=== PATIENT | male | born 1960 | race Caucasian/White ===

== ENCOUNTER 2018-11-09 14:21 | Inpatient (IN) ==
--- NOTE | 2018-11-09 15:15 | Emergency Department Note ---
Disposition Clinical Impression: Acute exacerbation of chronic obstructive airways disease, Hyperglycemia, Hyponatremia Community acquired pneumonia Qualifiers: Laterality: right Lung location: lower lobe of lung Qualified Code(s): J18.1 - Lobar pneumonia, unspecified organism Sepsis Qualifiers: Sepsis type: sepsis due to unspecified organism Qualified Code(s): A41.9 - Sepsis, unspecified organism Pancreatitis Qualifiers: Chronicity: acute Pancreatitis type: unspecified pancreatitis type Acute pancreatitis complication: unspecified Qualified Code(s): K85.90 - Acute pancreatitis without necrosis or infection, unspecified Disposition: Admitted As Inpatient Condition: Undetermined Time of Disposition: 22:29 General Adult HPI - General Chief complaint: ED Shortness of Breath/Dyspnea Stated complaint: cough, congestion Time Seen by Provider: 11/09/18 15:10 Source: patient Limitations: no limitations - History of Present Illness Pain Scale: 9 - Related Data Home Medications Medication Instructions Recorded Confirmed Allopurinol [Zyloprim 100 MG] 100 mg PO DAILY 06/25/17 09/05/18 Alprazolam [Xanax] 2 mg PO TID PRN 06/25/17 09/05/18 Citalopram Hydrobromide 40 mg PO DAILY 06/25/17 09/05/18 [Citalopram HBr] Doxazosin [Cardura] 4 mg PO HS 06/25/17 09/05/18 Enalapril Maleate [Vasotec] 10 mg PO DAILY 06/25/17 09/05/18 Furosemide [Lasix] 80 mg PO TID 06/25/17 09/05/18 Gabapentin [Neurontin] 800 mg PO TID 06/25/17 09/05/18 Indomethacin [Indocin] 25 mg PO TID 06/25/17 09/05/18 Levothyroxine Sodium 200 mcg PO DAILY 06/25/17 09/05/18 Metformin HCl [Glucophage] 1,000 mg PO BID 06/25/17 09/05/18 Omeprazole [PriLOSEC] 20 mg PO BID 06/25/17 09/05/18 OxyCODONE Immed Rel [Oxycodone HCl] 10 mg PO QID PRN 06/25/17 09/05/18 Pravastatin Sodium [Pravachol] 40 mg PO HS 06/25/17 09/05/18 Spironolactone [Aldactone] 100 mg PO DAILY 06/25/17 09/05/18 Tamsulosin [Flomax] 0.4 mg PO DAILY 06/25/17 09/05/18 Albuterol Sulfate [Albuterol 2 puff IH Q4HR PRN 11/05/17 09/05/18 Inhaler] Previous Rx's Medication Instructions Recorded Albuterol Sulfate [Albuterol 2 puff IH Q6HR #1 [id number].[email or web address] 09/05/18 Inhaler] Ondansetron [Zofran ODT] 8 mg SL Q8H PRN #10 tab 09/05/18 predniSONE [Prednisone] 50 mg PO DAILY #5 tablet 09/05/18 Allergies Allergy/AdvReac Type Severity Reaction Status Date / Time benazepril Allergy Difficulty Verified 09/05/18 16:09 Breathing ibuprofen Allergy Difficulty Verified 09/05/18 16:09 Breathing lisinopril Allergy Difficulty Verified 09/05/18 16:09 Breathing canagliflozin [From Invokana] AdvReac Dizziness Verified 09/05/18 16:09 Past Medical History - Past Medical History Medical history: Reports: COPD, diabetes Surgical history: Reports: cholecystectomy Psychiatric history: Reports: no psych history - Social History Smoking Status: Current every day smoker Smokeless Tobacco Status: No Alcohol use: Reports: none Drug use: Reports: none Physical Exam - General Limitations: no limitations General appearance: alert, in no apparent distress Course Vital Signs Temperature 98.6 F 11/09/18 14:29 Pulse Rate 86 11/09/18 14:29 Respiratory Rate 20 11/09/18 14:29 Blood Pressure 89/51 11/09/18 14:29 O2 Sat by Pulse Oximetry 87 11/09/18 14:29 Temperature 98.6 F 11/09/18 14:29 Pulse Rate 87 11/09/18 21:42 Respiratory Rate 16 11/09/18 22:20 Blood Pressure 108/45 11/09/18 22:20 O2 Sat by Pulse Oximetry 95 11/09/18 21:42 Oxygen Delivery Oxygen Delivery Room Air Medical Decision Making - Lab Data Result diagrams: 11/09/18 15:20 11/09/18 21:42 Lab Results 11/09/18 11/09/18 11/09/18 Range/Units 15:20 15:20 15:20 WBC 20.6 H (4.3-11.1) K/mcL RBC 4.90 (4.19-5.50) M/mcL Hgb 14.7 (12.9-16.9) g/dL Hct 41.7 (37.5-50.1) % MCV 85.1 (83.0-100.0) fL MCH 30.0 (28.0-33.3) pg MCHC 35.3 (31.6-35.5) g/dL RDW 15.1 H (11.5-14.5) % Plt Count 211 (140-400) K/mcL MPV 9.4 (9.4-12.4) fL Immature Gran % 2.5 (0-4) % Seg Neutrophils % 86.6 % Lymphocytes % 5.0 % Monocytes % 5.7 % Eosinophils % 0.0 % Basophils % 0.2 % Neutrophils # 17.8 H (1.6-8.9) K/mcL Lymphocytes # 1.0 (0.6-4.6) K/mcL Monocytes # 1.2 (0.0-1.3) K/mcL Eosinophils # 0.0 (0.0-0.6) K/mcL Basophils # 0.1 (0.0-0.2) K/mcL Sample Site ABG pH (7.32-7.45) pH Units ABG pCO2 (35-45) mmHg ABG pO2 (85-104) mmHg ABG HCO3 (21-27) mEq/L ABG Total CO2 (20-26) mEq/L ABG O2 Saturation (95-98) % ABG Base Excess (-2 to 3) mEq/L Akbar Test VBG pH (7.32-7.42) pH Units VBG pCO2 (41-51) mmHg VBG pO2 (25-50) mmHg VBG HCO3 (21-27) mEq/L O2 Delivery Device Sodium 115 L* (136-145) mEq/L Potassium 4.4 (3.5-5.1) mEq/L Chloride 67 L (98-107) mEq/L Carbon Dioxide 30 H (23-29) mEq/L BUN 75 H (6-20) mg/dL Creatinine 3.79 H (0.70-1.30) mg/dL Est GFR ( Amer) 20 L (> 60) Est GFR (Non-Af Amer) 17 L (> 60) BUN/Creatinine Ratio 20 (6-26) Glucose 568 H* (70-105) mg/dL POC Glucose (70-99) mg/dL Calculated Osmolality 288 (280-300) Lactic Acid (0.5-2.2) mmol/L Calcium 9.2 (8.6-10.3) mg/dL Troponin I 0.03 (< 0.04) ng/mL B-Natriuretic Peptide 54 (Less than 100) pg/mL Lipase 81 (11-82) Units/L Beta-Hydroxybutyric Acd (0.02-0.27) mmol/L Urine Creatinine mg/dL Protein/Creatinin Ratio (0.00-0.20) mg/mg Urine Sodium mEq/L Urine Total Protein (1-14) mg/dL 11/09/18 11/09/18 11/09/18 Range/Units 15:20 16:21 16:30 WBC (4.3-11.1) K/mcL RBC (4.19-5.50) M/mcL Hgb (12.9-16.9) g/dL Hct (37.5-50.1) % MCV (83.0-100.0) fL MCH (28.0-33.3) pg MCHC (31.6-35.5) g/dL RDW (11.5-14.5) % Plt Count (140-400) K/mcL MPV (9.4-12.4) fL Immature Gran % (0-4) % Seg Neutrophils % % Lymphocytes % % Monocytes % % Eosinophils % % Basophils % % Neutrophils # (1.6-8.9) K/mcL Lymphocytes # (0.6-4.6) K/mcL Monocytes # (0.0-1.3) K/mcL Eosinophils # (0.0-0.6) K/mcL Basophils # (0.0-0.2) K/mcL Sample Site ABG pH (7.32-7.45) pH Units ABG pCO2 (35-45) mmHg ABG pO2 (85-104) mmHg ABG HCO3 (21-27) mEq/L ABG Total CO2 (20-26) mEq/L ABG O2 Saturation (95-98) % ABG Base Excess (-2 to 3) mEq/L Akbar Test VBG pH 7.37 (7.32-7.42) pH Units VBG pCO2 53 H (41-51) mmHg VBG pO2 74 H (25-50) mmHg VBG HCO3 31 H (21-27) mEq/L O2 Delivery Device Sodium (136-145) mEq/L Potassium (3.5-5.1) mEq/L Chloride (98-107) mEq/L Carbon Dioxide (23-29) mEq/L BUN (6-20) mg/dL Creatinine (0.70-1.30) mg/dL Est GFR ( Amer) (> 60) Est GFR (Non-Af Amer) (> 60) BUN/Creatinine Ratio (6-26) Glucose (70-105) mg/dL POC Glucose (70-99) mg/dL Calculated Osmolality (280-300) Lactic Acid 3.4 H (0.5-2.2) mmol/L Calcium (8.6-10.3) mg/dL Troponin I (< 0.04) ng/mL B-Natriuretic Peptide (Less than 100) pg/mL Lipase (11-82) Units/L Beta-Hydroxybutyric Acd 0.37 H (0.02-0.27) mmol/L Urine Creatinine mg/dL Protein/Creatinin Ratio (0.00-0.20) mg/mg Urine Sodium mEq/L Urine Total Protein (1-14) mg/dL 11/09/18 11/09/18 11/09/18 Range/Units 17:36 17:41 17:54 WBC (4.3-11.1) K/mcL RBC (4.19-5.50) M/mcL Hgb (12.9-16.9) g/dL Hct (37.5-50.1) % MCV (83.0-100.0) fL MCH (28.0-33.3) pg MCHC (31.6-35.5) g/dL RDW (11.5-14.5) % Plt Count (140-400) K/mcL MPV (9.4-12.4) fL Immature Gran % (0-4) % Seg Neutrophils % % Lymphocytes % % Monocytes % % Eosinophils % % Basophils % % Neutrophils # (1.6-8.9) K/mcL Lymphocytes # (0.6-4.6) K/mcL Monocytes # (0.0-1.3) K/mcL Eosinophils # (0.0-0.6) K/mcL Basophils # (0.0-0.2) K/mcL Sample Site ABG pH (7.32-7.45) pH Units ABG pCO2 (35-45) mmHg ABG pO2 (85-104) mmHg ABG HCO3 (21-27) mEq/L ABG Total CO2 (20-26) mEq/L ABG O2 Saturation (95-98) % ABG Base Excess (-2 to 3) mEq/L Akbar Test VBG pH (7.32-7.42) pH Units VBG pCO2 (41-51) mmHg VBG pO2 (25-50) mmHg VBG HCO3 (21-27) mEq/L O2 Delivery Device Sodium 117 L* (136-145) mEq/L Potassium 4.3 (3.5-5.1) mEq/L Chloride 72 L (98-107) mEq/L Carbon Dioxide 30 H (23-29) mEq/L BUN 75 H (6-20) mg/dL Creatinine 3.70 H (0.70-1.30) mg/dL Est GFR ( Amer) 21 L (> 60) Est GFR (Non-Af Amer) 17 L (> 60) BUN/Creatinine Ratio 20 (6-26) Glucose 564 H* (70-105) mg/dL POC Glucose 583 H* 570 H* (70-99) mg/dL Calculated Osmolality 292 (280-300) Lactic Acid (0.5-2.2) mmol/L Calcium 8.5 L (8.6-10.3) mg/dL Troponin I (< 0.04) ng/mL B-Natriuretic Peptide (Less than 100) pg/mL Lipase (11-82) Units/L Beta-Hydroxybutyric Acd (0.02-0.27) mmol/L Urine Creatinine mg/dL Protein/Creatinin Ratio (0.00-0.20) mg/mg Urine Sodium mEq/L Urine Total Protein (1-14) mg/dL 11/09/18 11/09/18 11/09/18 Range/Units 18:00 19:20 19:22 WBC (4.3-11.1) K/mcL RBC (4.19-5.50) M/mcL Hgb (12.9-16.9) g/dL Hct (37.5-50.1) % MCV (83.0-100.0) fL MCH (28.0-33.3) pg MCHC (31.6-35.5) g/dL RDW (11.5-14.5) % Plt Count (140-400) K/mcL MPV (9.4-12.4) fL Immature Gran % (0-4) % Seg Neutrophils % % Lymphocytes % % Monocytes % % Eosinophils % % Basophils % % Neutrophils # (1.6-8.9) K/mcL Lymphocytes # (0.6-4.6) K/mcL Monocytes # (0.0-1.3) K/mcL Eosinophils # (0.0-0.6) K/mcL Basophils # (0.0-0.2) K/mcL Sample Site ABG pH (7.32-7.45) pH Units ABG pCO2 (35-45) mmHg ABG pO2 (85-104) mmHg ABG HCO3 (21-27) mEq/L ABG Total CO2 (20-26) mEq/L ABG O2 Saturation (95-98) % ABG Base Excess (-2 to 3) mEq/L Akbar Test VBG pH (7.32-7.42) pH Units VBG pCO2 (41-51) mmHg VBG pO2 (25-50) mmHg VBG HCO3 (21-27) mEq/L O2 Delivery Device Sodium (136-145) mEq/L Potassium (3.5-5.1) mEq/L Chloride (98-107) mEq/L Carbon Dioxide (23-29) mEq/L BUN (6-20) mg/dL Creatinine (0.70-1.30) mg/dL Est GFR ( Amer) (> 60) Est GFR (Non-Af Amer) (> 60) BUN/Creatinine Ratio (6-26) Glucose (70-105) mg/dL POC Glucose 588 H* 559 H* (70-99) mg/dL Calculated Osmolality (280-300) Lactic Acid (0.5-2.2) mmol/L Calcium (8.6-10.3) mg/dL Troponin I (< 0.04) ng/mL B-Natriuretic Peptide (Less than 100) pg/mL Lipase (11-82) Units/L Beta-Hydroxybutyric Acd (0.02-0.27) mmol/L Urine Creatinine 55 mg/dL Protein/Creatinin Ratio 1.44 H (0.00-0.20) mg/mg Urine Sodium < 10.0 mEq/L Urine Total Protein 79 H (1-14) mg/dL 11/09/18 11/09/18 11/09/18 Range/Units 19:27 20:21 20:24 WBC (4.3-11.1) K/mcL RBC (4.19-5.50) M/mcL Hgb (12.9-16.9) g/dL Hct (37.5-50.1) % MCV (83.0-100.0) fL MCH (28.0-33.3) pg MCHC (31.6-35.5) g/dL RDW (11.5-14.5) % Plt Count (140-400) K/mcL MPV (9.4-12.4) fL Immature Gran % (0-4) % Seg Neutrophils % % Lymphocytes % % Monocytes % % Eosinophils % % Basophils % % Neutrophils # (1.6-8.9) K/mcL Lymphocytes # (0.6-4.6) K/mcL Monocytes # (0.0-1.3) K/mcL Eosinophils # (0.0-0.6) K/mcL Basophils # (0.0-0.2) K/mcL Sample Site ABG pH (7.32-7.45) pH Units ABG pCO2 (35-45) mmHg ABG pO2 (85-104) mmHg ABG HCO3 (21-27) mEq/L ABG Total CO2 (20-26) mEq/L ABG O2 Saturation (95-98) % ABG Base Excess (-2 to 3) mEq/L Akbar Test VBG pH (7.32-7.42) pH Units VBG pCO2 (41-51) mmHg VBG pO2 (25-50) mmHg VBG HCO3 (21-27) mEq/L O2 Delivery Device Sodium (136-145) mEq/L Potassium (3.5-5.1) mEq/L Chloride (98-107) mEq/L Carbon Dioxide (23-29) mEq/L BUN (6-20) mg/dL Creatinine (0.70-1.30) mg/dL Est GFR ( Amer) (> 60) Est GFR (Non-Af Amer) (> 60) BUN/Creatinine Ratio (6-26) Glucose (70-105) mg/dL POC Glucose 547 H* > 600 H* (70-99) mg/dL Calculated Osmolality (280-300) Lactic Acid 1.6 (0.5-2.2) mmol/L Calcium (8.6-10.3) mg/dL Troponin I (< 0.04) ng/mL B-Natriuretic Peptide (Less than 100) pg/mL Lipase (11-82) Units/L Beta-Hydroxybutyric Acd (0.02-0.27) mmol/L Urine Creatinine mg/dL Protein/Creatinin Ratio (0.00-0.20) mg/mg Urine Sodium mEq/L Urine Total Protein (1-14) mg/dL / Range/Units 21:05 WBC (4.3-11.1) K/mcL RBC (4.19-5.50) M/mcL Hgb (12.9-16.9) g/dL Hct (37.5-50.1) % MCV (83.0-100.0) fL MCH (28.0-33.3) pg MCHC (31.6-35.5) g/dL RDW (11.5-14.5) % Plt Count (140-400) K/mcL MPV (9.4-12.4) fL Immature Gran % (0-4) % Seg Neutrophils % % Lymphocytes % % Monocytes % % Eosinophils % % Basophils % % Neutrophils # (1.6-8.9) K/mcL Lymphocytes # (0.6-4.6) K/mcL Monocytes # (0.0-1.3) K/mcL Eosinophils # (0.0-0.6) K/mcL Basophils # (0.0-0.2) K/mcL Sample Site L Radial ABG pH 7.35 (7.32-7.45) pH Units ABG pCO2 50 H (35-45) mmHg ABG pO2 76 L (85-104) mmHg ABG HCO3 28 H (21-27) mEq/L ABG Total CO2 29 H (20-26) mEq/L ABG O2 Saturation 94 L (95-98) % ABG Base Excess 1 (-2 to 3) mEq/L Akbar Test Positive VBG pH (7.32-7.42) pH Units VBG pCO2 (41-51) mmHg VBG pO2 (25-50) mmHg VBG HCO3 (21-27) mEq/L O2 Delivery Device Oxy Mask Sodium (136-145) mEq/L Potassium (3.5-5.1) mEq/L Chloride (98-107) mEq/L Carbon Dioxide (23-29) mEq/L BUN (6-20) mg/dL Creatinine (0.70-1.30) mg/dL Est GFR ( Amer) (> 60) Est GFR (Non-Af Amer) (> 60) BUN/Creatinine Ratio (6-26) Glucose (70-105) mg/dL POC Glucose (70-99) mg/dL Calculated Osmolality (280-300) Lactic Acid (0.5-2.2) mmol/L Calcium (8.6-10.3) mg/dL Troponin I (< 0.04) ng/mL B-Natriuretic Peptide (Less than 100) pg/mL Lipase (11-82) Units/L Beta-Hydroxybutyric Acd (0.02-0.27) mmol/L Urine Creatinine mg/dL Protein/Creatinin Ratio (0.00-0.20) mg/mg Urine Sodium mEq/L Urine Total Protein (1-14) mg/dL Attestation Statement - Attestation Attestation: I reviewed the residents documentation and agree with the residents assessment and plan of care. I have personally had face to face time with the patient. (Brief History, Brief Exam, and MDM) I personally supervised and was present for the menendez/critical portions of the following procedures completed by the resident: (add procedures performed here). [id number] time provided Patient with respiratory symptoms including cough, wheezing, dyspnea. He has a history of oxygen-dependent COPD. Active tobacco use. He states his primary care provider gave him a shot of Rocephin and a steroid symptoms have waxed and waned. The patient is visibly dyspneic on exam.
[2018-11-09] MEDS ORDERED: 0.9 % Sodium Chloride 1,000 ML IVC ONE ×3 (15:18→17:35)
[2018-11-09 15:33] LABS: Basophils # 0.1 K/mcL (0.0-0.2); Basophils % 0.2 %; Hematocrit 41.7 % (37.5-50.1); Hemoglobin 14.7 g/dL (12.9-16.9); Immature Granulocytes % 2.5 % (0-4); Mean Corpuscular HGB Conc 35.3 g/dL (31.6-35.5); Mean Corpuscular Volume 85.1 fL (83.0-100.0); Mean Platelet Volume 9.4 fL (9.4-12.4); Monocytes # 1.2 K/mcL (0.0-1.3); Monocytes % 5.7 %; Neutrophils # 17.8 K/mcL (1.6-8.9); Platelet Count 211 K/mcL (140-400); Red Cell Distribution Width 15.1 % (11.5-14.5); Segmented Neutrophils % 86.6 %
--- NOTE | 2018-11-09 15:35 | Emergency Department Note ---
Disposition Clinical Impression: Acute exacerbation of chronic obstructive airways disease, Hyperglycemia, Hyponatremia Community acquired pneumonia Qualifiers: Laterality: right Lung location: lower lobe of lung Qualified Code(s): J18.1 - Lobar pneumonia, unspecified organism Sepsis Qualifiers: Sepsis type: sepsis due to unspecified organism Qualified Code(s): A41.9 - Sepsis, unspecified organism Pancreatitis Qualifiers: Chronicity: acute Pancreatitis type: unspecified pancreatitis type Acute pancreatitis complication: unspecified Qualified Code(s): K85.90 - Acute pancreatitis without necrosis or infection, unspecified Disposition: Admitted As Inpatient Condition: Undetermined Referrals: Bill Kelley MD [Primary Care Provider] - Forms: ED Satisfaction Letter Time of Disposition: 18:05 SOB HPI - General Chief Complaint: ED Shortness of Breath/Dyspnea Stated Complaint: cough, congestion Time Seen by Provider: 11/09/18 15:10 Source: patient Mode of arrival: ambulatory Limitations: no limitations Nursing Notes Reviewed: Yes Vital Signs Reviewed: Yes - History of Present Illness 58-year-old male patient with history of COPD, hypertension on 4 L nasal cannula around the clock arrives in emergency Department complaint cough, congestion, epigastric abdominal pain radiating to his chest started roughly 4 weeks ago. The patient's pain states that it started 3 days ago was wrestling worsen. Patient denies any other acute complaints at this time other than generalized weakness. He is noted to be hypotensive and mildly hypoxic here in the ED. He denies any other specific complaints at this time. Patient is in no respiratory distress but has audible wheezing on auscultation. - Related Data Home Medications Medication Instructions Recorded Confirmed Allopurinol [Zyloprim 100 MG] 100 mg PO DAILY 06/25/17 09/05/18 Alprazolam [Xanax] 2 mg PO TID PRN 06/25/17 09/05/18 Citalopram Hydrobromide 40 mg PO DAILY 06/25/17 09/05/18 [Citalopram HBr] Doxazosin [Cardura] 4 mg PO HS 06/25/17 09/05/18 Enalapril Maleate [Vasotec] 10 mg PO DAILY 06/25/17 09/05/18 Furosemide [Lasix] 80 mg PO TID 06/25/17 09/05/18 Gabapentin [Neurontin] 800 mg PO TID 06/25/17 09/05/18 Indomethacin [Indocin] 25 mg PO TID 06/25/17 09/05/18 Levothyroxine Sodium 200 mcg PO DAILY 06/25/17 09/05/18 Metformin HCl [Glucophage] 1,000 mg PO BID 06/25/17 09/05/18 Omeprazole [PriLOSEC] 20 mg PO BID 06/25/17 09/05/18 OxyCODONE Immed Rel [Oxycodone HCl] 10 mg PO QID PRN 06/25/17 09/05/18 Pravastatin Sodium [Pravachol] 40 mg PO HS 06/25/17 09/05/18 Spironolactone [Aldactone] 100 mg PO DAILY 06/25/17 09/05/18 Tamsulosin [Flomax] 0.4 mg PO DAILY 06/25/17 09/05/18 Albuterol Sulfate [Albuterol 2 puff IH Q4HR PRN 11/05/17 09/05/18 Inhaler] Previous Rx's Medication Instructions Recorded Albuterol Sulfate [Albuterol 2 puff IH Q6HR #1 [id number].aer.ad 09/05/18 Inhaler] Ondansetron [Zofran ODT] 8 mg SL Q8H PRN #10 tab 09/05/18 predniSONE [Prednisone] 50 mg PO DAILY #5 tablet 09/05/18 Allergies Allergy/AdvReac Type Severity Reaction Status Date / Time benazepril Allergy Difficulty Verified 09/05/18 16:09 Breathing ibuprofen Allergy Difficulty Verified 09/05/18 16:09 Breathing lisinopril Allergy Difficulty Verified 09/05/18 16:09 Breathing canagliflozin [From Invokana] AdvReac Dizziness Verified 09/05/18 16:09 All systems ED: reviewed and negative except as stated. Constitutional: Reports: chills, weakness. Denies: fever Eyes: Denies: vision change ENT ED: Denies: throat pain, dysphagia Cardiovascular: Reports: chest pain, dyspnea on exertion, edema. Denies: palpitations, orthopnea, syncope Respiratory: Reports: dyspnea, wheezes, sputum production. Denies: cough, hemoptysis Gastrointestinal: Reports: abdominal pain. Denies: nausea, vomiting, diarrhea, constipation, hematemesis, melena, hematochezia Genitourinary: Denies: urgency, dysuria Musculoskeletal: Denies: back pain Integumentary: Denies: rash Neurological: Denies: headache Past Medical History - Past Medical History Attestation: Yes The following information was validated with the patient. Source: patient, old records reviewed Medical history: Reports: COPD, diabetes, hypertension Surgical history: Reports: cholecystectomy Psychiatric history: Reports: no psych history - Social History Smoking Status: Current every day smoker Smokeless Tobacco Status: No Alcohol use: Reports: none Drug use: Reports: none Physical Exam - General Limitations: no limitations General appearance: alert, in no apparent distress - Head Head exam: atraumatic, normocephalic, normal inspection - Eye Eye exam: Present: normal appearance, PERRL, EOMI - ENT ENT exam: normal exam, normal oropharynx, mucous membranes moist - Neck Neck exam: Present: normal inspection, full ROM, trachea midline - Chest Chest inspection: Present: normal inspection, symmetric chest wall rise - Respiratory Respiratory exam: Present: wheezes. Absent: respiratory distress, stridor, accessory muscle use, prolonged expiratory phase - Cardiovascular Cardiovascular exam: Present: regular rate, normal rhythm - Abdominal Exam Abdominal exam: Present: soft, tenderness, scar. Absent: distention, guarding, rebound, rigidity, Asher's sign, Rovsing's sign, tenderness at McBurney's Point Abdominal tenderness: Present: epigastrium, mild - Extremities Exam Extremities exam: Present: full ROM, normal capillary refill, other (chronic venous stasis). Absent: tenderness, pedal edema - Neurological Exam Neurological exam: Present: alert, oriented X3, CN II-XII intact - Skin Skin exam: Present: warm, dry, intact, normal color Course - Reevaluation(s) Reevaluation #1: Patient's chest x-ray demonstrates no acute process. Patient's respiratory status likely secondary to COPD exacerbation. Glucose noted to be elevated at 568. Patient was given a liter of IV fluids. Lactic acid noted at 3.4. The patient has what appears to be an acute kidney injury as well. Time: 16:54 Reevaluation #2: I spoke with Dr. Minaya and he suggested IVF hydration, insulin and sodium. No further recommendations. Agrees with ICU disposition. Time: 17:39 Vital Signs Temperature 98.6 F 11/09/18 14:29 Pulse Rate 86 11/09/18 14:29 Respiratory Rate 20 11/09/18 14:29 Blood Pressure 89/51 11/09/18 14:29 O2 Sat by Pulse Oximetry 87 11/09/18 14:29 Temperature 98.6 F 11/09/18 14:29 Pulse Rate 83 11/09/18 17:46 Respiratory Rate 17 11/09/18 17:46 Blood Pressure 85/59 11/09/18 17:46 O2 Sat by Pulse Oximetry 89 11/09/18 17:46 Oxygen Delivery Oxygen Delivery Nasal Cannula Shortness of Breath/Dyspnea - MDM Narrative Medical decision making narrative: Patient work-up in the Ed demonstrates sepsis likely secondary to a RLL pneumonia, DI with a Creatinine of 3.79, hyperglycemia, hyponatremia. The patient was agressively treated with IVF and started on insulin drip. I spoke with Dr. Minaya per recommendation of hospitalist who will accept the patient for ICU admission. Dr. Moreno is accepting. The patient is noted to remain mildly hypotensive but is fluid responsive. I also suspect a component of COPD exacerbation. - Medical Records Medical records reviewed: Yes I reviewed the patient's medical records. - Lab Data Lab results reviewed: Yes I reviewed the patient's lab results. Result diagrams: 11/09/18 15:20 11/09/18 15:20 Lab Results 11/09/18 11/09/18 11/09/18 Range/Units 15:20 15:20 15:20 WBC 20.6 H (4.3-11.1) K/mcL RBC 4.90 (4.19-5.50) M/mcL Hgb 14.7 (12.9-16.9) g/dL Hct 41.7 (37.5-50.1) % MCV 85.1 (83.0-100.0) fL MCH 30.0 (28.0-33.3) pg MCHC 35.3 (31.6-35.5) g/dL RDW 15.1 H (11.5-14.5) % Plt Count 211 (140-400) K/mcL MPV 9.4 (9.4-12.4) fL Immature Gran % 2.5 (0-4) % Seg Neutrophils % 86.6 % Lymphocytes % 5.0 % Monocytes % 5.7 % Eosinophils % 0.0 % Basophils % 0.2 % Neutrophils # 17.8 H (1.6-8.9) K/mcL Lymphocytes # 1.0 (0.6-4.6) K/mcL Monocytes # 1.2 (0.0-1.3) K/mcL Eosinophils # 0.0 (0.0-0.6) K/mcL Basophils # 0.1 (0.0-0.2) K/mcL VBG pH (7.32-7.42) pH Units VBG pCO2 (41-51) mmHg VBG pO2 (25-50) mmHg VBG HCO3 (21-27) mEq/L Sodium 115 L* (136-145) mEq/L Potassium 4.4 (3.5-5.1) mEq/L Chloride 67 L (98-107) mEq/L Carbon Dioxide 30 H (23-29) mEq/L BUN 75 H (6-20) mg/dL Creatinine 3.79 H (0.70-1.30) mg/dL Est GFR ( Amer) 20 L (> 60) Est GFR (Non-Af Amer) 17 L (> 60) BUN/Creatinine Ratio 20 (6-26) Glucose 568 H* (70-105) mg/dL POC Glucose (70-99) mg/dL Calculated Osmolality 288 (280-300) Lactic Acid (0.5-2.2) mmol/L Calcium 9.2 (8.6-10.3) mg/dL Troponin I 0.03 (< 0.04) ng/mL B-Natriuretic Peptide 54 (Less than 100) pg/mL Lipase 81 (11-82) Units/L Beta-Hydroxybutyric Acd (0.02-0.27) mmol/L 11/09/18 11/09/18 11/09/18 Range/Units 15:20 16:21 16:30 WBC (4.3-11.1) K/mcL RBC (4.19-5.50) M/mcL Hgb (12.9-16.9) g/dL Hct (37.5-50.1) % MCV (83.0-100.0) fL MCH (28.0-33.3) pg MCHC (31.6-35.5) g/dL RDW (11.5-14.5) % Plt Count (140-400) K/mcL MPV (9.4-12.4) fL Immature Gran % (0-4) % Seg Neutrophils % % Lymphocytes % % Monocytes % % Eosinophils % % Basophils % % Neutrophils # (1.6-8.9) K/mcL Lymphocytes # (0.6-4.6) K/mcL Monocytes # (0.0-1.3) K/mcL Eosinophils # (0.0-0.6) K/mcL Basophils # (0.0-0.2) K/mcL VBG pH 7.37 (7.32-7.42) pH Units VBG pCO2 53 H (41-51) mmHg VBG pO2 74 H (25-50) mmHg VBG HCO3 31 H (21-27) mEq/L Sodium (136-145) mEq/L Potassium (3.5-5.1) mEq/L Chloride (98-107) mEq/L Carbon Dioxide (23-29) mEq/L BUN (6-20) mg/dL Creatinine (0.70-1.30) mg/dL Est GFR ( Amer) (> 60) Est GFR (Non-Af Amer) (> 60) BUN/Creatinine Ratio (6-26) Glucose (70-105) mg/dL POC Glucose (70-99) mg/dL Calculated Osmolality (280-300) Lactic Acid 3.4 H (0.5-2.2) mmol/L Calcium (8.6-10.3) mg/dL Troponin I (< 0.04) ng/mL B-Natriuretic Peptide (Less than 100) pg/mL Lipase (11-82) Units/L Beta-Hydroxybutyric Acd 0.37 H (0.02-0.27) mmol/L 11/09/18 11/09/18 Range/Units 17:36 17:41 WBC (4.3-11.1) K/mcL RBC (4.19-5.50) M/mcL Hgb (12.9-16.9) g/dL Hct (37.5-50.1) % MCV (83.0-100.0) fL MCH (28.0-33.3) pg MCHC (31.6-35.5) g/dL RDW (11.5-14.5) % Plt Count (140-400) K/mcL MPV (9.4-12.4) fL Immature Gran % (0-4) % Seg Neutrophils % % Lymphocytes % % Monocytes % % Eosinophils % % Basophils % % Neutrophils # (1.6-8.9) K/mcL Lymphocytes # (0.6-4.6) K/mcL Monocytes # (0.0-1.3) K/mcL Eosinophils # (0.0-0.6) K/mcL Basophils # (0.0-0.2) K/mcL VBG pH (7.32-7.42) pH Units VBG pCO2 (41-51) mmHg VBG pO2 (25-50) mmHg VBG HCO3 (21-27) mEq/L Sodium (136-145) mEq/L Potassium (3.5-5.1) mEq/L Chloride (98-107) mEq/L Carbon Dioxide (23-29) mEq/L BUN (6-20) mg/dL Creatinine (0.70-1.30) mg/dL Est GFR ( Amer) (> 60) Est GFR (Non-Af Amer) (> 60) BUN/Creatinine Ratio (6-26) Glucose (70-105) mg/dL POC Glucose 583 H* 570 H* (70-99) mg/dL Calculated Osmolality (280-300) Lactic Acid (0.5-2.2) mmol/L Calcium (8.6-10.3) mg/dL Troponin I (< 0.04) ng/mL B-Natriuretic Peptide (Less than 100) pg/mL Lipase (11-82) Units/L Beta-Hydroxybutyric Acd (0.02-0.27) mmol/L - Radiology Data Radiology results reviewed: Yes I reviewed the patient's radiology results. Abdomen/Pelvis CT 11/09/18 15:17 IMPRESSION: Posterior lower lobe airspace disease, greater on left, likely represents atelectasis. Pneumonia is considered less likely but not excluded. Enlargement of the pancreatic tail with adjacent stranding, likely representing acute inflammation. Post-contrast follow-up to resolution is recommended to exclude underlying lesion. At least moderate fatty infiltration of liver. The liver is mildly enlarged. D/ / Chica Jett Cha, MD / Chica Jett Cha, MD Interpreting Provider: Chica Jett Cha, MD - EKG Data EKG attestation: Yes I reviewed and interpreted this EKG. EKG results narrative: Heart rate 85 bpm. Normal sinus rhythm. No ST elevation or ST depression.
[2018-11-09] MEDS ORDERED: Ipratropium/Albuterol Neb 3 ML IH ONE ×2 (15:40→21:06)
[2018-11-09] MEDS ORDERED: methylPREDNISolone 125 MG/2 ML VIAL IVP ONE (15:41)
[2018-11-09 15:58] LABS: Calcium 9.2 mg/dL (8.6-10.3); Potassium 4.4 mEq/L (3.5-5.1); Troponin I 0.03 ng/mL (< 0.04)
[2018-11-09 16:35] LABS: VBG HCO3 31 mEq/L (21-27); VBG PCO2 53 mmHg (41-51); VBG PH 7.37 pH Units (7.32-7.42); VBG PO2 74 mmHg (25-50)
[2018-11-09] MEDS ORDERED: *HR* Dextrose 50 % in Water (Syg) 50 ML SYRINGE IVP PRN (17:35)
[2018-11-09] MEDS ORDERED: Insulin Human Regular 100 UNIT in 0.9 % Sodium Chloride 100 ML IVC SCH (17:45)
[2018-11-09 18:22] LABS: Creatinine,Urine 55 mg/dL; Protein/Creatinine Ratio,Urine 1.44 mg/mg (0.00-0.20); Sodium, Urine < 10.0 mEq/L
[2018-11-09 19:11] LABS: Calcium 8.5 mg/dL (8.6-10.3); Potassium 4.3 mEq/L (3.5-5.1)
[2018-11-09] MEDS: 0.9 % Sodium Chloride w KCl 20 MEQ/1,000 ML MLS IVC SCH (20:09)
--- NOTE | 2018-11-09 20:15 | Internal Med History&Physical ---
<Yesica Sellers N - Last Filed: 11/09/18 23:01> Date of Encounter: 11/09/18 Time of Encounter: 20:15 Internal Medicine - H&P: HPI Admitted From: Emergency Dept Plans for Post Hospital Care: Home History of present illness: Mr. Apodaca is a 58 year old male with a history of diabetes, COPD, hypertension, and CHF. He was evaluated in the emergency department this evening for multiple agents, including general malaise, abdominal pain, and worsening shortness of breath. Patient states he has been feeling ill for approximately 4 weeks, with increasing shortness of breath and chest congestion. He does currently uses 3 L of supplemental oxygen at home; however, he is still currently a regular smoker. Patient states that he finally sought evaluation as his symptoms were not improving. Upon arrival to the emergency department, patient was found to be significantly hyperglycemic, with blood glucose greater than 550. Patient reports that he uses insulin pen at home, and states that his blood sugars have been running in the 130s. He reports nausea and decreased appetite over the last several weeks, reporting poor oral intake. He denies any changes in bowel habits or diarrhea. Initial vital signs obtained in the emergency department were as follows: Temperature 98.6, HR 86, RR 20, BP 89/51, and oxygen saturation 87%. Patient was administered several 1 L fluid boluses, which did improve his blood pressure. Laboratory studies were also significant for leukocytosis of 20.6, sodium 1:15, chloride 67, CO2 30, BUN 75, creatinine 3.79, lactic acid 3.4, and beta hydroxybutyric acid of 0.37. Abdominal CT was performed, which was significant for findings consistent with acute pancreatitis. Patient was started on fluid resuscitation and insulin drip per DKA protocol and was admitted to the hospitalist service for ongoing workup and management. Past Med Surg Social Fam HX - Past Medical History Medical history: COPD, diabetes, hypertension Additional medical history: pt states he uses 2 liters of oxygen at night, 3 litters now, neuropathy, depression, Psychiatric history: no psych history - Past Surgical History Surgical History: cholecystectomy Additional surgical history: bilateral carpal tunnel-2016, right #4 osteotomy-06/23/2017,both knees/ scope left knee, spur right knee-, l4-l5 fusion-2004, bilateral carpal tunnel-2012, bilateral elbow-2013, polyp removed from throat-unsure, left elbow ulnar nerve transposition-2013, left olectanon bursa excision-2013, - Social History Smoking Status: Current every day smoker Smokeless Tobacco Status: No Alcohol use: none Drug use: none Internal Medicine - H&P: Meds Allopurinol [Zyloprim 100 MG] 100 mg PO DAILY 06/25/17 [History] Alprazolam [Xanax] 2 mg PO TID PRN 06/25/17 [History] Citalopram Hydrobromide [Citalopram HBr] 40 mg PO DAILY 06/25/17 [History] Doxazosin [Cardura] 4 mg PO HS 06/25/17 [History] Enalapril Maleate [Vasotec] 10 mg PO DAILY 06/25/17 [History] Furosemide [Lasix] 80 mg PO TID 06/25/17 [History] Gabapentin [Neurontin] 800 mg PO TID 06/25/17 [History] Indomethacin [Indocin] 25 mg PO TID PRN 06/25/17 [History] Levothyroxine Sodium 200 mcg PO DAILY 06/25/17 [History] Metformin HCl [Glucophage] 1,000 mg PO BID 06/25/17 [History] Omeprazole [PriLOSEC] 20 mg PO BID 06/25/17 [History] OxyCODONE Immed Rel [Oxycodone HCl] 10 mg PO QID PRN 06/25/17 [History] Pravastatin Sodium [Pravachol] 40 mg PO HS 06/25/17 [History] Spironolactone [Aldactone] 100 mg PO DAILY 06/25/17 [History] Tamsulosin [Flomax] 0.4 mg PO DAILY 06/25/17 [History] Albuterol Sulfate [Albuterol Inhaler] 2 puff IH Q4HR PRN 11/05/17 [History] Albuterol Sulfate [Albuterol Inhaler] 2 puff IH Q6HR #1 [email or web address] 09/05/18 [Rx] Ondansetron [Zofran ODT] 8 mg SL Q8H PRN #10 tab 09/05/18 [Rx] PredniSONE [Deltasone] 20 mg PO DAILY 11/09/18 [History] predniSONE [Prednisone] mg PO DAILY 11/09/18 [History] Allergy/AdvReac Type Severity Reaction Status Date / Time benazepril Allergy Difficulty Verified 09/05/18 16:09 Breathing ibuprofen Allergy Difficulty Verified 09/05/18 16:09 Breathing lisinopril Allergy Difficulty Verified 09/05/18 16:09 Breathing canagliflozin [From Invokana] AdvReac Dizziness Verified 09/05/18 16:09 All Systems PM: A 10-system review of systems was performed and is negative for pertinent findings except as documented above in the HPI. - Constitutional Constitutional: anorexia, no chills, no fever(s) - Cardiovascular Cardiovascular ROS IM: dyspnea on exertion, no chest pain - Respiratory Respiratory: cough, dyspnea on exertion, wheezing, chest congestion - Gastrointestinal Gastrointestinal: abdominal pain, nausea, no change in bowel habits, no constip ation, no diarrhea, no vomiting - Musculoskeletal Musculoskeletal ROS IM: no numbness, no tingling - Neurological Neurological ROS: no confusion, no convulsions, no focal weakness, no numbness, no tingling, no tremor(s) - Constitutional Vitals: Temp Pulse Resp BP Pulse Ox 98.6 F 84 16 112/55 92 11/09/18 14:29 11/09/18 20:07 11/09/18 20:07 11/09/18 20:07 11/09/18 20:07 Exam: GENERAL: Well-developed, well-nourished obese adult male in no acute distress. He is somewhat somnolent and difficult to wake. HEENT: Atraumatic and normocephalic. Nasal cannula and oxy-mask in place. CARDIOVASCULAR: Regular rate and rhythm. S1 and S2 present. No murmurs, gallops, or rubs. RESPIRATORY: Significantly decreased breath sounds bilaterally with scattered wheezes present. Chest rises and falls symmetrically without accessory muscle u se. GASTROINTESTINAL: Active bowel sounds present 4 quadrants. Abdomen is soft and mildly distended. Patient is diffusely tender to palpation. EXTREMITIES: Mild nonpitting edema in bilateral lower extremities. SKIN: Warm, dry, and intact. Bilateral lower extremity shows skin changes consistent with venous stasis. NEUROLOGIC: Patient is somnolent; however, he does wake up and answer questions appropriately. No apparent focal deficits. PSYCHIATRIC: Appropriate mood and affect. Internal Med - H&P Results - Labs CBC & Chem 7: 11/09/18 15:20 11/09/18 21:42 Labs: Short CBC 11/09/18 Range/Units 15:20 WBC 20.6 H (4.3-11.1) K/mcL Hgb 14.7 (12.9-16.9) g/dL Hct 41.7 (37.5-50.1) % Plt Count 211 (140-400) K/mcL Neutrophils # 17.8 H (1.6-8.9) K/mcL BMP 11/09/18 11/09/18 15:20 17:54 Sodium 115 L* 117 L* Potassium 4.4 4.3 Chloride 67 L 72 L Carbon Dioxide 30 H 30 H BUN 75 H 75 H Creatinine 3.79 H 3.70 H Glucose 568 H* 564 H* Calcium 9.2 8.5 L Cardiac Enzymes 11/09/18 Range/Units 15:20 Troponin I 0.03 (< 0.04) ng/mL - ABG Interpretation ABG results: 11/09/18 16:30 VBG pH 7.37 VBG pCO2 53 H VBG pO2 74 H VBG HCO3 31 H - Impressions ITS Impressions Abdomen/Pelvis CT 11/09/18 15:17 IMPRESSION: Posterior lower lobe airspace disease, greater on left, likely represents atelectasis. Pneumonia is considered less likely but not excluded. Enlargement of the pancreatic tail with adjacent stranding, likely representing acute inflammation. Post-contrast follow-up to resolution is recommended to exclude underlying lesion. At least moderate fatty infiltration of liver. The liver is mildly enlarged. D/ / Chica Jett Cha, MD / Chica Jett Cha, MD Interpreting Provider: Chica Jett Cha, MD - Assessment and Plan (1) DKA (diabetic ketoacidoses) Current Visit: Yes Status: Acute Assessment and plan: Likely secondary to underlying infection (community-acquired pneumonia), inflammatory process (pancreatitis), and/or poor patient compliance. Patient presented with initial serum glucose of 568, and an anion gap of 15; additionally, he was also noted to have an elevated beta-hydroxybutyric acid of 0.37. Though patient reported home glucose readings ~130, hemoglobin A1c was significantly elevated at 13.7. Plan: - Continue IVF hydration and insulin gtt per DKA protocol. NPO diet order placed. - Repeat electrolytes Q2H and replete as needed. Qualifiers: Diabetes mellitus type: type 2 Diabetes mellitus complication detail: without coma Qualified Code(s): E11.10 - Type 2 diabetes mellitus with ketoacidosis without coma (2) Sepsis Current Visit: Yes Status: Acute Assessment and plan: Patient met sepsis criteria with tachypnea, leukocytosis (WBC 20.6), elevated lactic acid of 3.8, and suspected pneumonia. Patient was administered 3 1-L fluid boluses while in the emergency department; repeat lactic acid was WNL at 1.6. - Continue IV fluid hydration per DKA protocol. - Starts antimicrobial therapy with azithromycin and ceftriaxone for suspected community acquired pneumonia. - Repeat and trend daily CBC. Qualifiers: Sepsis type: sepsis due to unspecified organism Qualified Code(s): A41.9 - Sepsis, unspecified organism (3) Community acquired pneumonia Current Visit: Yes Status: Acute Assessment and plan: Chest imaging was significant for posterior lobe airspace disease, greater on the left. Per radiology report, this is felt to likely represent atelectasis; however, pneumonia cannot be excluded. Patient does have significantly decreased breath sounds, particularly on the right, and reports increased chest congestion over the last several days. Patient also has significant leukocytosis, with WBC of 20.6. - Start azithromycin and Rocephin for treatment of suspected community acquired pneumonia. - Urine legionella and strep pneumonia antigens pending. Qualifiers: Laterality: right Lung location: lower lobe of lung Qualified Code(s): J18.1 - Lobar pneumonia, unspecified organism (4) Acute exacerbation of chronic obstructive airways disease Current Visit: Yes Status: Acute Assessment and plan: Suspect COPD exacerbation, due to increased wheezing and increased oxygen requirement to maintain appropriate saturation. Patient was administered nebulized breathing treatments in the ED, as well as 125 mg IV Solu-Medrol. - Continue duonebs Q4H scheduled, with albuterol nebs Q2H PRN. - Solu-medrol 40mg IVP Q8H. (5) Pancreatitis Current Visit: Yes Status: Acute Assessment and plan: Patient presents with symptoms of pancreatitis, as well as CT evidence with enlargement of the pancreatic tail and adjacent stranding with acute inflammation. Lipase was noted to be WNL at 81. - NPO diet order placed this time. - Continue fluid hydration as detailed above. - Lipid panel pending. - Consider contrasted CT for further evaluation. Qualifiers: Chronicity: acute Pancreatitis type: unspecified pancreatitis type Acute pancreatitis complication: unspecified Qualified Code(s): K85.90 - Acute pancreatitis without necrosis or infection, unspecified (6) DI (acute kidney injury) Current Visit: Yes Status: Acute Assessment and plan: Suspect prerenal etiology of dehydration secondary to poor oral intake and DKA. - Continue IV fluid hydration as detailed above. - Avoid nephrotoxins and renally dose medications as appropriate. - Repeat and trend serum creatinine with morning laboratory studies. (7) Hyponatremia Current Visit: Yes Status: Acute Assessment and plan: Suspect secondary to dehydration and poor oral intake. - Continue IV fluid hydration and Q2H sodium checks. (8) CHF (congestive heart failure) Current Visit: Yes Status: Acute Assessment and plan: History of CHF. Previous echocardiogram is not available. - Echocardiogram pending. - Monitor closely for signs of fluid overload and/or respiratory distress. Qualifiers: Heart failure type: unspecified Heart failure chronicity: unspecified Qualified Code(s): I50.9 - Heart failure, unspecified (9) DVT prophylaxis Current Visit: Yes Status: Acute Assessment and plan: - Heparin 5000units SQ Q8H. - Time Spent With Patient Total time spent is greater than 50% in coordination of care (as documented) at patient's floor/unit and/or counseling patient: <Jordon Bennett - Last Filed: 11/10/18 01:03> Date of Encounter: 11/09/18 Internal Medicine - H&P: HPI Chief complaint: pain All Systems PM: A 10-system review of systems was performed and is negative for pertinent findings except as documented above in the HPI. - Constitutional Vitals: Temp Pulse Resp BP Pulse Ox 98.6 F 79 21 94/51 92 11/09/18 14:29 11/09/18 20:37 11/09/18 20:37 11/09/18 20:37 11/09/18 20:37 Internal Med - H&P Results - Labs CBC & Chem 7: 11/09/18 15:20 11/09/18 21:42 Labs: Short CBC 11/09/18 Range/Units 15:20 WBC 20.6 H (4.3-11.1) K/mcL Hgb 14.7 (12.9-16.9) g/dL Hct 41.7 (37.5-50.1) % Plt Count 211 (140-400) K/mcL Neutrophils # 17.8 H (1.6-8.9) K/mcL BMP 11/09/18 11/09/18 15:20 17:54 Sodium 115 L* 117 L* Potassium 4.4 4.3 Chloride 67 L 72 L Carbon Dioxide 30 H 30 H BUN 75 H 75 H Creatinine 3.79 H 3.70 H Glucose 568 H* 564 H* Calcium 9.2 8.5 L Cardiac Enzymes 11/09/18 Range/Units 15:20 Troponin I 0.03 (< 0.04) ng/mL - ABG Interpretation ABG results: 11/09/18 16:30 VBG pH 7.37 VBG pCO2 53 H VBG pO2 74 H VBG HCO3 31 H - Impressions ITS Impressions Abdomen/Pelvis CT 11/09/18 15:17 IMPRESSION: Posterior lower lobe airspace disease, greater on left, likely represents atelectasis. Pneumonia is considered less likely but not excluded. Enlargement of the pancreatic tail with adjacent stranding, likely representing acute inflammation. Post-contrast follow-up to resolution is recommended to exclude underlying lesion. At least moderate fatty infiltration of liver. The liver is mildly enlarged. D/ / Chica Jett Cha, MD / Chica Jett Cha, MD Interpreting Provider: Chica Jett Cha, MD - Time Spent With Patient Total time spent is greater than 50% in coordination of care (as documented) at patient's floor/unit and/or counseling patient: Greater than 35 minutes - Attending Attestation I performed a history and physical exam of the patient and discussed management with the resident. I reviewed the resident's note and agree with the documented findings and plan of care. Bruno Apodaca is a morbidly obese 58-year-old man with hypertension, poorly controlled diabetes, COPD who remains an active smoker with oxygen dependence who presented to the emergency room with vague complaints of diffuse abdominal pain, shortness of breath. He was noted mildly hypotensive and hypoxic in the ER requiring an increase in his oxygen requirements. Lab work revealed leukocytosis of 20.6, sodium 115, chloride 67 and glucose over 500. Serum ketones were positive. Imaging studies showed concerns for posterior lower lobe airspace disease. There was enlargement of the pancreatic tail with adjacent stranding concerning for acute inflammation however his serum lipase was within normal limits. My assessment he was somnolent but easily arousable, alert and oriented to person, place, time and situation. No wheezing or rhonchi auscultated. Distended abdomen that is soft and nontender. Trace edema in his lower extremities with venous changes of stasis dermatitis. We will admit to the ICU for DKA protocol as well as dehydration with hypovolemic hyponatremia and hypochloremia taking into account that his corrected sodium based on his glucose level is still low. Aggressive fluid resuscitation was required as well as insulin drip. Obtain a UA as well as blood/urine culture. Dedicated chest imaging should be done for further assessment. Keep nothing by mouth for now given the abdominal pain and pancreatic inflammatory radiographic signs. X-ray review concerning for left lower lobe infiltrate. Will treat for community acquired pneumonia. LIBBY BRIONES.
[2018-11-09] MEDS: Insulin Human Regular 100 UNIT in 0.9 % Sodium Chloride 100 ML IVC SCH (20:25)
[2018-11-09 21:10] LABS: ABG Base Excess 1 mEq/L (-2 to 3); ABG HCO3 28 mEq/L (21-27); ABG Oxygen Saturation 94 % (95-98); ABG PCO2 50 mmHg (35-45); ABG PH 7.35 pH Units (7.32-7.45); ABG PO2 76 mmHg (85-104); ABG TCO2 29 mEq/L (20-26)
[2018-11-09] MEDS ORDERED: Ipratropium/Albuterol Neb 3 ML ONE (21:14)
[2018-11-09] MEDS ORDERED: Insulin Regular, Human 100 UNIT/ML IV PRN ×2 (21:28)
[2018-11-09] MEDS ORDERED: Naloxone 0.4 MG/ML INJ IVP PRN (21:28)
[2018-11-09] MEDS ORDERED: D5% in 0.45% NACL w KCl 20 MEQ/1,000 ML MLS IVC PRN (21:28)
[2018-11-09] MEDS ORDERED: D5% in 0.45% NACL 1,000 ML IVC PRN (21:28)
[2018-11-09] MEDS ORDERED: 0.9 % Sodium Chloride 1,000 ML IVC PRN (21:30)
[2018-11-09] MEDS ORDERED: Albuterol 2.5 MG/3 ML NEBULIZER IH PRN (21:34)
[2018-11-09 22:04] LABS: VBG HCO3 26 mEq/L (21-27); VBG PCO2 45 mmHg (41-51); VBG PH 7.36 pH Units (7.32-7.42); VBG PO2 116 mmHg (25-50)
[2018-11-09 22:12] LABS: Estimated Average Glucose 346 mg/dl; Hemoglobin A1C 13.7 %
[2018-11-09 22:16] LABS: Calcium 8.4 mg/dL (8.6-10.3); Magnesium 2.7 mg/dL (1.6-2.6); Phosphorous 6.2 mg/dL (2.7-4.5); Potassium 3.6 mEq/L (3.5-5.1)
[2018-11-09] MEDS: *HR* Heparin 5,000 UNIT/ML VIAL SQ SCH (23:39)
[2018-11-09] MEDS: Pantoprazole 40 MG VIAL IVP SCH (23:41)
[2018-11-09] MEDS: MethylPREDNISolone 40 MG/ML VIAL IVP SCH (23:41)
[2018-11-09] MEDS: Azithromycin 500 MG in D5% in Water 250 ML IVPB SCH (23:48)
[2018-11-09] MEDS: cefTRIAXone 1,000 MG in Water for inj. (sterile) 20 ML 10 ML IVP SCH (23:48)
[2018-11-10] MEDS ORDERED: OXYCODONE Oral CONC 10 MG/0.5 ML ORAL.SYG SL PRN (00:07)
[2018-11-10] MEDS: Ipratropium/Albuterol Neb 3 ML IH SCH ×7 (00:09→23:49)
[2018-11-10] MEDS: 0.9 % Sodium Chloride w KCl 20 MEQ/1,000 ML MLS IVC SCH ×3 (00:16→08:51)
[2018-11-10] MEDS: Insulin Human Regular 100 UNIT in 0.9 % Sodium Chloride 100 ML IVC SCH ×3 (01:23→06:33)
[2018-11-10 02:00] LABS: BUN/Creatinine Ratio 24 (6-26); Blood Urea Nitrogen 71 mg/dL (6-20); Calcium 8.3 mg/dL (8.6-10.3); Carbon Dioxide 25 mEq/L (23-29); Chloride 82 mEq/L (98-107); Cholesterol 218 mg/dL (< 200); Glucose 285 mg/dL (70-105); HDL Cholesterol 31 mg/dL (40-59); Osmolality,Calculated 291 (280-300); Potassium 3.7 mEq/L (3.5-5.1); Sodium 125 mEq/L (136-145); Triglycerides 914 mg/dL (< 150); eGFR For Non-African Americans 22 (> 60)
[2018-11-10 05:22] LABS: Basophils % 0.3 %; Hematocrit 40.5 % (37.5-50.1); Hemoglobin 13.8 g/dL (12.9-16.9); Immature Granulocytes % 2.6 % (0-4); Lymphocytes # 0.7 K/mcL (0.6-4.6); Lymphocytes % 4.5 %; Mean Corpuscular HGB Conc 34.1 g/dL (31.6-35.5); Mean Corpuscular Hemoglobin 29.6 pg (28.0-33.3); Mean Corpuscular Volume 86.7 fL (83.0-100.0); Mean Platelet Volume 9.3 fL (9.4-12.4); Monocytes # 0.4 K/mcL (0.0-1.3); Monocytes % 2.8 %; Neutrophils # 13.3 K/mcL (1.6-8.9); Platelet Count 198 K/mcL (140-400); Red Blood Count 4.67 M/mcL (4.19-5.50); Segmented Neutrophils % 89.8 %
[2018-11-10 05:38] LABS: Calcium 8.8 mg/dL (8.6-10.3); Phosphorous 4.9 mg/dL (2.7-4.5); Potassium 3.6 mEq/L (3.5-5.1)
[2018-11-10] MEDS: *HR* Heparin 5,000 UNIT/ML VIAL SQ SCH ×3 (05:39→22:00)
[2018-11-10] MEDS: Pantoprazole 40 MG VIAL IVP SCH (05:39)
[2018-11-10 06:03] LABS: Bilirubin,Urine Negative (Negative); Blood,Urine Small (Negative); Clarity,Urine Clear (Clear); Color,Urine Yellow (Yellow); Glucose,Urine (UA) >=1000 mg/dL (Normal); Ketones,Urine Negative (Negative); Leukocyte Esterase,Urine Negative (Negative); Nitrite,Urine Negative (Negative); Protein,Urine 30 mg/dL (Neg-Trace); Specific Gravity,Urine 1.019 (1.010-1.025); Urobilinogen,Urine Normal (Normal)
[2018-11-10 06:04] LABS: Hyaline Casts,Urine None Seen per lpf (None-Few); Squamous Epithelial Cell,Urine Few per lpf (None-Few); WBC,Urine 0-3 per hpf (0-3)
[2018-11-10 06:15] LABS: Bacteria,Urine Few per hpf (None-Few)
[2018-11-10] MEDS: MethylPREDNISolone 40 MG/ML VIAL IVP SCH ×2 (07:35→16:11)
--- NOTE | 2018-11-10 07:38 | Internal Med Progress Note ---
Hospitalist Progress Note - Encounter Date of Encounter: 11/10/18 Time of Encounter: 07:30 - Subjective Interval History: Admitted overnight for abdominal pain secondary to DKA and pancreatitis. Improved this am - Exam Vitals: Temp Pulse Resp BP Pulse Ox 97.6 F 68 18 92/64 89 11/10/18 07:00 11/10/18 07:00 11/10/18 07:20 11/10/18 07:00 11/10/18 07:20 Exam: GENERAL: Well-developed, well-nourished obese adult male in no acute distress. He is somewhat somnolent and difficult to wake. HEENT: Atraumatic and normocephalic. Nasal cannula and oxy-mask in place. CARDIOVASCULAR: Regular rate and rhythm. S1 and S2 present. No murmurs, gallops, or rubs. RESPIRATORY: Significantly decreased breath sounds bilaterally with scattered wheezes present. Chest rises and falls symmetrically without accessory muscle use. GASTROINTESTINAL: Active bowel sounds present 4 quadrants. Abdomen is soft and mildly distended. Patient is diffusely tender to palpation. EXTREMITIES: Mild nonpitting edema in bilateral lower extremities. SKIN: Warm, dry, and intact. Bilateral lower extremity shows skin changes consistent with venous stasis. NEUROLOGIC: Patient is somnolent; however, he does wake up and answer questions appropriately. No apparent focal deficits. PSYCHIATRIC: Appropriate mood and affect. - Assessment and Plan (1) Acute respiratory failure with hypoxia Current Visit: Yes Status: Acute Assessment and Plan: Was desaturating to 87% on arrival. Likely secondary to pneumonia and COPD exacerbation Continue antibiotics, steroids and breathing treatments (2) DKA (diabetic ketoacidoses) Current Visit: Yes Status: Acute Assessment and Plan: Pt comes in with hyperglycemia and elevated anion gap On DKA protocol with insulin drip. Continue serial BMPs Plan to transition to subcutaneous basal and short acting insulin once gap closes (3) Acute exacerbation of chronic obstructive airways disease Current Visit: Yes Status: Acute Assessment and Plan: Continue on nebs, steroids and antibiotics (4) Hyponatremia Current Visit: Yes Status: Acute Assessment and Plan: Pt comes in with sodium levels of 115 likely secondary to severe dehydration and pseudohyperglycemia. Has trended up to 131 Will adjust fluids accordingly and monitor sodium levels to avoid overcorrection (5) DI (acute kidney injury) Current Visit: Yes Status: Acute Assessment and Plan: Likely secondary to severe dehydration. Continue IV fluid hydration (6) Diastolic CHF Current Visit: Yes Status: Acute Assessment and Plan: No acute exacerbation. Continue hydration (7) Community acquired bacterial pneumonia Current Visit: Yes Status: Acute Assessment and Plan: Continue on ceftriaxone and azithroymycin (8) Sepsis Current Visit: Yes Status: Acute Assessment and Plan: Came in hypotensive with leukocytosis of 290 and community acquired pneumonia Continue antibiotics (9) DVT prophylaxis Current Visit: Yes Status: Acute Assessment and Plan: On heparin sc - Time Spent with Patient Total time spent is greater than 50% in coordination of care (as documented) at patient's floor/unit and/or counseling patient: Internal Medicine: Result - Labs CBC & Chem 7: 11/10/18 05:04 11/10/18 13:42 Labs: Short CBC 11/09/18 11/10/18 Range/Units 15:20 05:04 WBC 20.6 H 14.8 H (4.3-11.1) K/mcL Hgb 14.7 13.8 (12.9-16.9) g/dL Hct 41.7 40.5 (37.5-50.1) % Plt Count 211 198 (140-400) K/mcL Neutrophils # 17.8 H 13.3 H (1.6-8.9) K/mcL BMP 11/09/18 11/09/18 11/09/18 15:20 17:54 21:42 Sodium 115 L* 117 L* 122 L Potassium 4.4 4.3 3.6 Chloride 67 L 72 L 79 L Carbon Dioxide 30 H 30 H 24 BUN 75 H 75 H 75 H Creatinine 3.79 H 3.70 H 3.41 H Glucose 568 H* 564 H* 395 H Calcium 9.2 8.5 L 8.4 L 11/10/18 11/10/18 01:04 05:04 Sodium 125 L 129 L Potassium 3.7 3.6 Chloride 82 L 87 L Carbon Dioxide 25 27 BUN 71 H 67 H Creatinine 2.92 H 2.50 H Glucose 285 H 178 H Calcium 8.3 L 8.8 Cardiac Enzymes 11/09/18 Range/Units 15:20 Troponin I 0.03 (< 0.04) ng/mL Urine 11/10/18 Range/Units 05:40 Urine Color Yellow (Yellow) Urine Clarity Clear (Clear) Urine pH 6.0 (5.0-8.0) pH Units Ur Specific [place] 1.019 (1.010-1.025) Urine Protein 30 H (Neg-Trace) mg/dL Urine Glucose (UA) >=1000 H (Normal) mg/dL - ABG Interpretation ABG results: ABG ABG pH 7.35 pH Units (7.32-7.45) 11/09/18 21:05 ABG pCO2 50 mmHg (35-45) H 11/09/18 21:05 ABG pO2 76 mmHg (85-104) L 11/09/18 21:05 ABG O2 Saturation 94 % (95-98) L 11/09/18 21:05 - Impressions Impressions Abdomen/Pelvis CT 11/09/18 15:17 IMPRESSION: Posterior lower lobe airspace disease, greater on left, likely represents atelectasis. Pneumonia is considered less likely but not excluded. Enlargement of the pancreatic tail with adjacent stranding, likely representing acute inflammation. Post-contrast follow-up to resolution is recommended to exclude underlying lesion. At least moderate fatty infiltration of liver. The liver is mildly enlarged. D/ / Chica Jett Cha, MD / Chica Jett Cha, MD Interpreting Provider: Chica Jett Cha, MD Consult Discharge Plan - Plan Referrals: Bill Kelley MD [Primary Care Provider] - (2) DKA (diabetic ketoacidoses) Qualifiers: Diabetes mellitus type: type 2 Diabetes mellitus complication detail: without coma Qualified Code(s): E11.10 - Type 2 diabetes mellitus with ketoacidosis without coma (8) Sepsis Qualifiers: Sepsis type: sepsis due to unspecified organism Qualified Code(s): A41.9 - Se psis, unspecified organism
[2018-11-10 09:19] LABS: Calcium 8.8 mg/dL (8.6-10.3); Potassium 3.2 mEq/L (3.5-5.1)
[2018-11-10] MEDS ORDERED: Furosemide 20 MG/2 ML VIAL IVP ONE (09:26)
[2018-11-10] MEDS ORDERED: D5% in 0.9% NACL w KCl 20 MEQ/1,000 ML MLS IVC SCH (09:30)
[2018-11-10] MEDS ORDERED: Perflutren Lipid Microsphere 1.3 ML in 0.9 % Sodium Chloride 8.7 ML IVP ONE (09:59)
--- NOTE | 2018-11-10 13:03 | Electrocardiograph Report ---
[address] [address] Test Date: 2018-11-09 Pat Name: Bruno Apodaca Department: [id number] Room: 2N02 Gender: M [employer]ir[employer] Worker: : 1960 Requested By: Sterling Martinez Order Number: [id number] Reading MD: Anastacio Mohamud Measurements Intervals [place] Rate: 85 P: 28 DC: 175 QRS: 86 QRSD: 119 T: 27 QT: 434 QTc: 517 Interpretive Statements Sinus rhythm Nonspecific intraventricular conduction delay Electronically Signed On 11-10-2018 13:01:38 EDT by Anastacio Mohamud
[2018-11-10 14:16] LABS: Potassium 3.7 mEq/L (3.5-5.1)
[2018-11-10] MEDS ORDERED: D5% in Water 1,000 ML IVC PRN (14:24)
[2018-11-10] MEDS ORDERED: Insulin DETEMIR 100 UNIT/ML X5UNITS SQ ONE (14:24)
[2018-11-10] MEDS ORDERED: Dextrose Gel 15 GM/37.5 ML TUBE PO PRN ×2 (14:24)
[2018-11-10] MEDS: Insulin LISPRO 300 UNITS/3 ML VIAL SQ SCH (16:10)
[2018-11-10 18:59] LABS: Calcium 7.7 mg/dL (8.6-10.3); Potassium 4.8 mEq/L (3.5-5.1)
[2018-11-10] MEDS ORDERED: Insulin Human Regular 20 UNIT in 0.9 % Sodium Chloride 10 ML IV ONE (19:09)
[2018-11-10] MEDS ORDERED: Insulin LISPRO 300 UNITS/3 ML VIAL SQ SCH (21:00)
[2018-11-10] MEDS ORDERED: Insulin DETEMIR 100 UNIT/ML X5UNITS SQ SCH (21:00)
[2018-11-10 22:17] LABS: Calcium 8.1 mg/dL (8.6-10.3); Potassium 4.1 mEq/L (3.5-5.1)
[2018-11-11] MEDS: Azithromycin 500 MG in D5% in Water 250 ML IVPB SCH (00:30)
[2018-11-11] MEDS: cefTRIAXone 1,000 MG in Water for inj. (sterile) 20 ML 10 ML IVP SCH (00:30)
[2018-11-11] MEDS ORDERED: 0.9 % Sodium Chloride 250 ML ONE (00:39)
[2018-11-11] MEDS: Ipratropium/Albuterol Neb 3 ML IH SCH ×3 (03:30→11:27)
[2018-11-11] MEDS: Pantoprazole 40 MG VIAL IVP SCH (06:40)
[2018-11-11] MEDS: *HR* Heparin 5,000 UNIT/ML VIAL SQ SCH (06:40)
[2018-11-11 07:10] VITALS: BP 118/54
--- NOTE | 2018-11-11 07:37 | Internal Med Progress Note ---
Hospitalist Progress Note - Encounter Date of Encounter: 11/11/18 Time of Encounter: 07:30 - Exam Vitals: Temp Pulse Resp BP Pulse Ox 98.5 F 70 18 118/54 91 11/11/18 07:06 11/11/18 07:06 11/11/18 07:06 11/11/18 07:06 11/11/18 07:06 Exam: GENERAL: Well-developed, well-nourished obese adult male in no acute distress. He is somewhat somnolent and difficult to wake. HEENT: Atraumatic and normocephalic. Nasal cannula and oxy-mask in place. CARDIOVASCULAR: Regular rate and rhythm. S1 and S2 present. No murmurs, gallops, or rubs. RESPIRATORY: Significantly decreased breath sounds bilaterally with scattered wheezes present. Chest rises and falls symmetrically without accessory muscle use. GASTROINTESTINAL: Active bowel sounds present 4 quadrants. Abdomen is soft and mildly distended. Patient is diffusely tender to palpation. EXTREMITIES: Mild nonpitting edema in bilateral lower extremities. SKIN: Warm, dry, and intact. Bilateral lower extremity shows skin changes consistent with venous stasis. NEUROLOGIC: Patient is somnolent; however, he does wake up and answer questions appropriately. No apparent focal deficits. PSYCHIATRIC: Appropriate mood and affect. - Assessment and Plan (1) Acute respiratory failure with hypoxia Current Visit: Yes Status: Acute Assessment and Plan: Was desaturating to 87% on arrival. Likely secondary to pneumonia and COPD exacerbation Continue antibiotics, steroids and breathing treatments (2) DKA (diabetic ketoacidoses) Current Visit: Yes Status: Acute Assessment and Plan: Pt comes in with hyperglycemia and elevated anion gap On DKA protocol with insulin drip. Continue serial BMPs Plan to transition to subcutaneous basal and short acting insulin once gap closes (3) Acute exacerbation of chronic obstructive airways disease Current Visit: Yes Status: Acute Assessment and Plan: Continue on nebs, steroids and antibiotics (4) Hyponatremia Current Visit: Yes Status: Acute Assessment and Plan: Pt comes in with sodium levels of 115 likely secondary to severe dehydration and pseudohyperglycemia. Has trended up to 131 Will adjust fluids accordingly and monitor sodium levels to avoid overcorrection (5) DI (acute kidney injury) Current Visit: Yes Status: Acute Assessment and Plan: Likely secondary to severe dehydration. Continue IV fluid hydration (6) Diastolic CHF Current Visit: Yes Status: Acute Assessment and Plan: No acute exacerbation. Continue hydration (7) Community acquired bacterial pneumonia Current Visit: Yes Status: Acute Assessment and Plan: Continue on ceftriaxone and azithroymycin (8) Sepsis Current Visit: Yes Status: Acute Assessment and Plan: Came in hypotensive with leukocytosis of 290 and community acquired pneumonia Continue antibiotics (9) DVT prophylaxis Current Visit: Yes Status: Acute Assessment and Plan: On heparin sc - Time Spent with Patient Total time spent is greater than 50% in coordination of care (as documented) at patient's floor/unit and/or counseling patient: Internal Medicine: Result - Labs CBC & Chem 7: 11/10/18 05:04 11/10/18 21:29 Labs: BMP 11/10/18 11/10/18 11/10/18 07:53 13:42 18:11 Sodium 131 L 134 L 124 L D Potassium 3.2 L 3.7 4.8 D Chloride 90 L 91 L 89 L Carbon Dioxide 27 31 H 24 BUN 63 H 56 H 53 H Creatinine 2.17 H 1.86 H 1.91 H Glucose 116 H 157 H 663 H* Calcium 8.8 9.0 7.7 L 11/10/18 21:29 Sodium 124 L Potassium 4.1 Chloride 88 L Carbon Dioxide 21 L BUN 50 H Creatinine 1.78 H Glucose 488 H Calcium 8.1 L - ABG Interpretation ABG results: ABG ABG pH 7.35 pH Units (7.32-7.45) 11/09/18 21:05 ABG pCO2 50 mmHg (35-45) H 11/09/18 21:05 ABG pO2 76 mmHg (85-104) L 11/09/18 21:05 ABG O2 Saturation 94 % (95-98) L 11/09/18 21:05 - Impressions Impressions Echocardiogram 11/10/18 23:32 Impressions: LVEF 60%. Indeterminate diastolic function. Definity echo contrast was used. Right ventricle is dilated. Systolic function is normal. Mild mitral regurgitation. Mild tricuspid regurgitation. No pulmonary hypertension. Left Ventricular Wall Motion: Rest Echo Findings All wall segments showed normal motion. Findings: Study Quality * Technically adequate exam. ECG Findings * Normal sinus rhythm. Left Ventricle * LVEF 60%. * Normal LV chamber size, wall thickness and function. * Indeterminate diastolic function. * Definity echo contrast was used. Right Ventricle * Right ventricle is dilated. Systolic function is normal. Left Atrium * Normal left atrial size. Right Atrium * Normal right atrial size. Aortic Valve * No aortic regurgitation. * Aortic valve not well visualized. * No aortic stenosis. Mitral Valve * Normal mitral valve structure. * No mitral stenosis. * Mild mitral regurgitation. Tricuspid Valve * Tricuspid valve not well visualized. * Mild tricuspid regurgitation. Pulmonic Valve * Pulmonic valve is not well visualized. * No pulmonic stenosis. * No pulmonic regurgitation. Pulmonary Artery * Pulmonary artery not well visualized. Aorta * Not well visualized. Pericardium * There is no pericardial effusion present. Interatrial Septum * Interatrial septum not well evaluated. IVC * The IVC is not well evaluated. Consult Discharge Plan - Plan Referrals: Bill Kelley MD [Primary Care Provider] - (2) DKA (diabetic ketoacidoses) Qualifiers: Diabetes mellitus type: type 2 Diabetes mellitus complication detail: without coma Qualified Code(s): E11.10 - Type 2 diabetes mellitus with ketoacidosis without coma (8) Sepsis Qualifiers: Sepsis type: sepsis due to unspecified organism Qualified Code(s): A41.9 - Sepsis, unspecified organism
[2018-11-11] MEDS: Insulin LISPRO 300 UNITS/3 ML VIAL SQ SCH ×2 (08:17→11:04)
[2018-11-11 08:56] LABS: Basophils # 0.1 K/mcL (0.0-0.2); Basophils % 0.6 %; Eosinophils % 0.2 %; Hematocrit 41.7 % (37.5-50.1); Hemoglobin 13.5 g/dL (12.9-16.9); Immature Granulocytes % 4.3 % (0-4); Lymphocytes # 1.6 K/mcL (0.6-4.6); Lymphocytes % 9.8 %; Mean Corpuscular HGB Conc 32.4 g/dL (31.6-35.5); Mean Corpuscular Hemoglobin 29.3 pg (28.0-33.3); Mean Corpuscular Volume 90.7 fL (83.0-100.0); Mean Platelet Volume 9.3 fL (9.4-12.4); Monocytes # 0.9 K/mcL (0.0-1.3); Monocytes % 5.6 %; Neutrophils # 12.7 K/mcL (1.6-8.9); Platelet Count 244 K/mcL (140-400); Red Cell Distribution Width 14.9 % (11.5-14.5); Segmented Neutrophils % 79.5 %
[2018-11-11 09:13] LABS: BUN/Creatinine Ratio 36 (6-26); Blood Urea Nitrogen 44 mg/dL (6-20); Calcium 9.1 mg/dL (8.6-10.3); Carbon Dioxide 27 mEq/L (23-29); Chloride 94 mEq/L (98-107); Glucose 302 mg/dL (70-105); Osmolality,Calculated 294 (280-300); Potassium 3.9 mEq/L (3.5-5.1); Sodium 131 mEq/L (136-145); eGFR For Non-African Americans > 60 (> 60)
--- NOTE | 2018-11-11 09:53 | Discharge Summary ---
Date of Encounter: 11/11/18 Time of Encounter: 19:00 - Discharge Diagnosis (1) DKA (diabetic ketoacidoses) Priority: Primary Status: Acute Assessment and Plan: 58 year old male with a history of diabetes, COPD, hypertension, and CHF. He was evaluated in the emergency department this evening for multiple agents, including general malaise, abdominal pain, and worsening shortness of breath. Patient states he has been feeling ill for approximately 4 weeks, with increasing shortness of breath and chest congestion. He does currently uses 3 L of supplemental oxygen at home; however, he is still currently a regular smoker. Patient states that he finally sought evaluation as his symptoms were not improving. Upon arrival to the emergency department, patient was found to be significantly hyperglycemic, with blood glucose greater than 550 Pt comes in with hyperglycemia and elevated anion gap with DKA. He was started on an insulin drip and fluid replacement, and treated with antibiotics for sepsis secondary to community acquired pnuemonia. He also got breathing treatments and steroids for a COPD exacerbation. His gap closed and his diet was able to be advanced to solids. He was discharged on levemir and short acting hum alog but tunrs out he doesnt have insurance, so pharmacy adjusted his home insulin to NPH post discharge. He also had an DI which resolved with fluids. 35 minutes was spent discharging this patient Qualifiers: Diabetes mellitus type: type 2 Diabetes mellitus complication detail: without coma Qualified Code(s): E11.10 - Type 2 diabetes mellitus with ketoacidosis without coma (2) Acute respiratory failure with hypoxia Priority: Primary Status: Acute (3) Acute exacerbation of chronic obstructive airways disease Priority: Primary Status: Acute Assessment and Plan: Continue on nebs, steroids and antibiotics (4) Hyponatremia Priority: Primary Status: Acute (5) DI (acute kidney injury) Priority: Primary Status: Acute (6) Diastolic CHF Priority: Primary Status: Acute Qualifiers: Heart failure chronicity: acute on chronic Qualified Code(s): I50.33 - Acute on chronic diastolic (congestive) heart failure (7) Community acquired bacterial pneumonia Priority: Primary Status: Acute (8) Sepsis Priority: Primary Status: Acute Qualifiers: Sepsis type: sepsis due to unspecified organism Qualified Code(s): A41.9 - Sepsis, unspecified organism (9) DVT prophylaxis Priority: Primary Status: Acute Hospital course: Mr. Apodaca is a 58 year old male - Time Spent with Patient Total time spent providing and/or coordinating discharge services: - Discharge Medications Prescriptions: New Furosemide [Lasix] 40 mg PO BID #60 tab Insulin LISPRO [Humalog] 10 unit SQ TID 30 Days #300 mls Insulin DETEMIR [Levemir] 30 unit SQ HS 30 Days #30 mls Continued Alprazolam [Xanax] 2 mg PO TID PRN PRN Reason: Anxiety Citalopram Hydrobromide [Citalopram HBr] 40 mg PO DAILY Doxazosin [Cardura] 4 mg PO HS Gabapentin [Neurontin] 800 mg PO TID Indomethacin [Indocin] 25 mg PO TID PRN PRN Reason: Gout flare up Levothyroxine Sodium 200 mcg PO QAM Metformin HCl [Glucophage] 1,000 mg PO BID Omeprazole [PriLOSEC] 20 mg PO BID OxyCODONE Immed Rel [Roxicodone 10 MG] 10 mg PO TID PRN PRN Reason: Pain Pravastatin Sodium [Pravachol] 40 mg PO HS Spironolactone [Aldactone] 100 mg PO DAILY Tamsulosin [Flomax] 0.4 mg PO DAILY Albuterol Sulfate [Albuterol Inhaler] 2 puff IH Q4HR PRN PRN Reason: Shortness Of Breath PredniSONE [Deltasone] See Taper PO DAILY Enalapril Maleate [Vasotec] 2.5 mg PO QPM Allopurinol [Zyloprim 300 MG] 300 mg PO DAILY Clotrimazole [Mycelex Melody] 10 mg PO 5XD Discontinued Furosemide [Lasix] 80 mg PO TID Home Medications: Alprazolam [Xanax] 2 mg PO TID PRN 06/25/17 [History] Citalopram Hydrobromide [Citalopram HBr] 40 mg PO DAILY 06/25/17 [History] Doxazosin [Cardura] 4 mg PO HS 06/25/17 [History] Gabapentin [Neurontin] 800 mg PO TID 06/25/17 [History] Indomethacin [Indocin] 25 mg PO TID PRN 06/25/17 [History] Levothyroxine Sodium 200 mcg PO QAM 06/25/17 [History] Metformin HCl [Glucophage] 1,000 mg PO BID 06/25/17 [History] Omeprazole [PriLOSEC] 20 mg PO BID 06/25/17 [History] OxyCODONE Immed Rel [Roxicodone 10 MG] 10 mg PO TID PRN 06/25/17 [History] Pravastatin Sodium [Pravachol] 40 mg PO HS 06/25/17 [History] Spironolactone [Aldactone] 100 mg PO DAILY 06/25/17 [History] Tamsulosin [Flomax] 0.4 mg PO DAILY 06/25/17 [History] Albuterol Sulfate [Albuterol Inhaler] 2 puff IH Q4HR PRN 11/05/17 [History] PredniSONE [Deltasone] See Taper PO DAILY 11/09/18 [History] Allopurinol [Zyloprim 300 MG] 300 mg PO DAILY 11/10/18 [History] Clotrimazole [Mycelex Melody] 10 mg PO 5XD 11/10/18 [History] Enalapril Maleate [Vasotec] 2.5 mg PO QPM 11/10/18 [History] Furosemide [Lasix] 40 mg PO BID #60 tab 11/11/18 [Rx] Insulin DETEMIR [Levemir] 30 unit SQ HS 30 Days #30 mls 11/11/18 [Rx] Insulin LISPRO [Humalog] 10 unit SQ TID 30 Days #300 mls 11/11/18 [Rx] Allergies/Adverse Reactions: Allergy/AdvReac Type Severity Reaction Status Date / Time benazepril Allergy Difficulty Verified 09/05/18 16:09 Breathing ibuprofen Allergy Difficulty Verified 09/05/18 16:09 Breathing lisinopril Allergy Difficulty Verified 09/05/18 16:09 Breathing canagliflozin [From Invokana] AdvReac Dizziness Verified 09/05/18 16:09 Date of admission: 11/09/18 21:08 Primary care physician: Bill Kelley MD - Constitutional Vitals: Temp Pulse Resp BP Pulse Ox 98.5 F 70 18 118/54 95 11/11/18 07:06 11/11/18 07:06 11/11/18 07:43 11/11/18 07:06 11/11/18 07:43 Exam: NAD - Head Head exam: Present: atraumatic, normocephalic - Eye Eye exam: Present: PERRL, conjuntiva pink, sclera anicteric Pupils: Present: PERRL - Neck Neck exam general surgery: Present: supple, trachea midline. Absent: lymphadenopathy - Respiratory Respiratory exam: Present: CTAB. Absent: accessory muscle use, rales, rhonchi, wheezes - Cardiovascular Cardiovascular exam: Present: RRR, +S1, +S2. Absent: diastolic murmur, gallop, rubs, systolic murmur - GI/Abdominal GI/Abdominal exam: Present: normal bowel sounds, soft, no peritoneal signs. Absent: distended, tenderness - Extremities Exam Extremities exam: Present: warm, radial pulses palpable and symmetrical. Absent: calf tenderness, cyanotic, pedal edema - Neurological Exam Neurological exam: Present: CN II-XII intact, oriented X3, no focal deficits. Absent: pronater drift, facial droop, speech deficit - Skin Skin exam: Present: dry, intact - Patient Status Disposition: Home, Self-Care Condition: Fair - Discharge Instructions Instructions: Furosemide (By mouth), Insulin Detemir (Injection), Insulin Lispro (Injection), Heart Failure (DC), How to Stop Smoking (DC), Cigarette Smoking and Your Health (GEN), How to Check Your Blood Sugar (DC), How to Check Your Blood Sugar (GEN), Diabetes Mellitus Type 2 in Adults (DC), Chronic Obstructive Pulmonary Disease (DC), Chronic Obstructive Pulmonary Disease (GEN) Follow Up With: Bill Kelley MD [Primary Care Provider] - 11/24/18 10:45 am
[2018-11-11] MEDS ORDERED: Insulin DETEMIR 100 UNIT/ML X5UNITS SQ STA (10:12)
== END 2018-11-11 11:41 | disposition home or self-care (01) | DRG 871 ==
LOC: EMEROOARM 14:21 → 2NNU 21:08
PROVIDERS: ADMIT Internal Medicine Nephrology; ATTEND Internal Medicine Nephrology